=== PATIENT | female | born 1985 | race Two or more races ===

== ENCOUNTER 2025-01-13 16:46 | Emergency (ER) | payer OTHER ==
[~2025-01-13] VITALS: Ht 160 cm; Wt 48.5 kg
[2025-01-13] MEDS ORDERED: SWABABLE VALVE TRANSFER SET EA MC ONE (17:50)
[2025-01-13] MEDS ORDERED: IOHEXOL 350 100 ML INFUS..BTL ONE (17:50)
[2025-01-13] MEDS ORDERED: IV NORMAL SALINE 250 ML IV ONE (17:50)
[2025-01-13 17:58] LABS: PLATELET COUNT (AUTO) 226 K/uL (179-408); RED BLOOD CELL COUNT(AUTO) 4.61 MIL/uL (3.63-4.92); RED CELL DISTRIBUTION WIDTH 13.0 % (12.3-17.7); WHITE BLOOD COUNT (AUTO) 6.5 K/uL (3.8-11.8)
[2025-01-13 18:04] LABS: CREATININE 0.7 mg/dL (0.6-1.3); SODIUM SERUM 139 mmol/L (136-145); UREA NITROGEN, BLOOD 15 mg/dL (7-18)
[2025-01-13 18:10] LABS: ASPARTATE AMINOTRANSFERASE 10 U/L (15-37); TOTAL PROTEIN, SERUM 8.7 g/dL (6.4-8.2)
[2025-01-13 18:53] LABS: *BILIRUBIN,URIN NEGATIVE (NEGATIVE); *BLOOD, URINE TRACE (NEGATIVE); *CLARITY,URINE CLEAR (CLEAR); *COLOR,URINE YELLOW (YELLOW); *KETONES,URINE NEGATIVE (NEGATIVE); *PROTEIN,URINE NEGATIVE (NEGATIVE); *UROBILINOGEN,URINE 0.2 E.U./dl (NORMAL); LEUKOCYTE ESTERASE ,URINE NEGATIVE (NEGATIVE); NITRITE, URINE NEGATIVE (NEGATIVE); UGLUCOSE NEGATIVE (NEGATIVE)
[2025-01-13 18:56] LABS: *URINE HCG, QUAL NEGATIVE (NEGATIVE)
[2025-01-13 18:58] LABS: *AMPHETAMINE, URINE NEGATIVE (NEGATIVE); *BARBITURATE, URINE NEGATIVE (NEGATIVE); *BENZODIAZEPINE, URINE NEGATIVE (NEGATIVE); *CANNABINOID, URINE NEGATIVE (NEGATIVE); *COCCAINE, URINE NEGATIVE (NEGATIVE); *OPIATE, URINE NEGATIVE (NEGATIVE); *PHENCYCLIDINE SCREEN,URINE NEGATIVE (NEGATIVE); FENTANYL, URINE NEGATIVE (NEGATIVE)
[2025-01-13 19:00] LABS: SQUAMOUS EPITHELIAL CELL,UR FEW /HPF (NONE SEEN)
[2025-01-13 21:00] VITALS: BP 113/72
[2025-01-13 21:54] VITALS: BP 113/72; TEMP 98; O2SAT 100
== END 2025-01-13 21:54 | disposition home or self-care (01) ==
LOC: ER 17:12
DX: R20.0 Anesthesia of skin (principal); R00.0 Tachycardia, unspecified; R20.2 Paresthesia of skin; R51.9 Headache, unspecified; F41.0 Panic disorder [episodic paroxysmal anxiety]; F43.9 Reaction to severe stress, unspecified; F41.9 Anxiety disorder, unspecified; R94.31 Abnormal electrocardiogram [ECG] [EKG]; Z79.899 Other long term (current) drug therapy; Z86.2 Personal history of diseases of the blood and blood-forming organs and certain disorders involving the immune mechanism
CPT/HCPCS: 99285; 70450; 71045; 80076; 80048; 81001; 84703; 85025; 85730; 86850; 86900; 86901; 84484; 36415; 70496; 70498; 93005; 80307; Q9967; A4606; A4663